=== PATIENT | female | born 1950 | race Caucasian/White ===

== ENCOUNTER → 2016-06-14 | Outpatient (CLI) | payer MEDICARE ==
[2016-06-14 10:55] LABS: ALT 43 U/L (9-52); AST 33 U/L (14-36)
== END | disposition home or self-care (01) ==
LOC: LABWHC1 09:47
PROVIDERS: ATTEND Physician Assistant Medical
DX: L40.0 Psoriasis vulgaris (principal)
CPT/HCPCS: 36415; 84450; 84460

== ENCOUNTER → 2017-09-11 | Outpatient (CLI) | payer MEDICARE ==
[2017-09-11 09:27] LABS: Basophils # (A) 0.1 k/uL (0-0.2); Basophils % (A) 1 %; Eosinophils # (A) 0.3 k/uL (0-0.7); Eosinophils % (A) 5 %; HCT 41.7 % (34.0-46.0); HGB 14.2 gm/dL (11.4-16.0); Lymphocytes # (A) 2.3 k/uL (1.0-4.8); Lymphocytes % (A) 40 %; MCH 29.8 pg (25.0-35.0); MCV 87.7 fL (80.0-100.0); Mean Platelet Volume 7.3; Monocytes # (A) 0.5 k/uL (0-1.0); Monocytes % (A) 8 %; Neutrophils # (A) 2.5 k/uL (1.3-7.7); Neutrophils % (A) 44 %; Platelet Count 197 k/uL (150-450); RBC 4.76 m/uL (3.80-5.40); RDW 13.4 % (11.5-15.5); WBC 5.6 k/uL (3.8-10.6)
[2017-09-11 09:49] LABS: T4, Free (Free Thyroxine) 0.87 ng/dL (0.78-2.19)
[2017-09-11 11:03] LABS: ALT 38 U/L (9-52); AST 33 U/L (14-36); Albumin 4.5 g/dL (3.5-5.0); Alkaline Phosphatase 67 U/L (38-126); Anion Gap 15 mmol/L; Blood Urea Nitrogen 16 mg/dL (7-17); Calcium 9.7 mg/dL (8.4-10.2); Carbon Dioxide 24 mmol/L (22-30); Chloride 107 mmol/L (98-107); Cholesterol 184 mg/dL (<200); Glucose 96 mg/dL (74-99); HDL Cholesterol 39 mg/dL (40-60); LDL Cholesterol,Calculated 97 mg/dL (0-99); Sodium 146 mmol/L (137-145); Total Bilirubin 0.5 mg/dL (0.2-1.3); Total Protein 6.9 g/dL (6.3-8.2); Triglycerides 242 mg/dL (<150)
[2017-09-11 17:58] LABS: Hemoglobin A1C 5.5 % (4.0-6.0)
== END | disposition home or self-care (01) ==
LOC: LABWHC1 08:16
PROVIDERS: ATTEND Internal Medicine Geriatric Medicine
DX: E03.9 Hypothyroidism, unspecified (principal); R79.9 Abnormal finding of blood chemistry, unspecified; I10 Essential (primary) hypertension; E78.00 Pure hypercholesterolemia, unspecified
CPT/HCPCS: 36415; 80053; 80061; 83036; 84439; 84443; 85025

== ENCOUNTER → 2017-11-27 | Outpatient (CLI) | payer MEDICARE ==
--- NOTE | 2017-11-27 17:24 | BD ---
EXAMINATION TYPE: Axial Bone Density DATE OF EXAM: 11/27/2017 COMPARISON: 10.19.2014 CLINICAL HISTORY: 66 YR OLD FEMALE.....ICD-10 CODE: M81.0 KNOWN OSTEOPOROSIS Height: 61 Weight: 173 FRAX RISK QUESTIONS: Family History (Parent hip fracture): NO FX RISK FACTORS HISTORY OF: HX OF STRESS FX TO FOOT/49 YRS OLD Family History of Osteoporosis: YES HER MOTHER, NO HIP FXS Active: NOT REALLY Diet low in dairy products/other sources of calcium: NO Postmenopausal woman: YES, AT ABOUT 53 YRS OLD MEDICATIONS: Thyroid Medications: YES, SYNTHROID FOR ABOUT 20 YRS Additional Medications: BP MEDS, PROZAC, VIT D, METHOTREXATE Additional History: HEART TROUBLE, ANXIETY, PSORIASIS WITH RELATED ARTHRITIS EXAM MEASUREMENTS: Bone mineral densitometry was performed using the [employer] System. Bone mineral density as measured about the Lumbar spine is: ----- L1-L4(G/cm2): 1.436 T Score Values are as follows: ----- L1: 1.6 ----- L2: 2.4 ----- L3: 1.5 ----- L4: 2.9 ----- L1-L4: 2.1 Bone mineral density has: Increased 13.8% since study of: 10.19.2014 Bone mineral density about the R hip (g/cm2): 0.988 Bone mineral density about the L hip (g/cm2): 1.033 T Score values are as follows: -----R Neck: -1.6 -----L Neck: -1.4 -----R Total: -0.2 -----L Total: 0.2 Bone mineral density has: Increased 0.7% since study of: 10.19.2014 FRAX%s: THERE IS A 23.4% CHANCE OF A MAJOR OSTEOPOROTIC FX AND A 3.7% FOR HIP FX.....PROBABILITY O F FX IN 10 YRS TIME IMPRESSION: Osteopenia (T Score between -2.5 and -1). There is slightly increased risk of fracture and the patient may be considered for treatment. Re-Screen 2-5 years. NOTE: T-SCORE=SD OF THE YOUNG ADULT MEAN.
--- NOTE | 2017-11-28 12:47 | MM ---
Reason for exam: screening (asymptomatic). Last mammogram was performed 3 years and 2 months ago. History: Patient is postmenopausal. Family history of breast cancer in paternal cousin at age 45 and breast cancer in paternal cousin at age 40. Took estrogen for 1 year. Physical Findings: A clinical breast exam by your physician is recommended on an annual basis and results should be correlated with mammographic findings. MG 3D Screening Mammo W/Cad Bilateral CC and MLO view(s) were taken. Prior study comparison: October 06, 2014, bilateral MG screening mammo w CAD. July 30, 2013, bilateral digital screening mammo w/CAD. The breast tissue is heterogeneously dense. This may lower the sensitivity of mammography. There is no discrete abnormality. No significant changes when compared with prior studies. ASSESSMENT: Negative, BI-RAD 1 RECOMMENDATION: Routine screening mammogram of both breasts in 1 year.
== END | disposition home or self-care (01) ==
LOC: RADMAMWWP 13:47
PROVIDERS: ATTEND Internal Medicine Geriatric Medicine
DX: Z12.31 Encounter for screening mammogram for malignant neoplasm of breast (principal); M81.0 Age-related osteoporosis without current pathological fracture; M85.80 Other specified disorders of bone density and structure, unspecified site
CPT/HCPCS: 77063; 77067; 77080

== ENCOUNTER 2018-04-27 12:55 | Emergency (ER) | payer MEDICARE ==
--- NOTE | 2018-04-27 22:27 | CT ---
EXAMINATION TYPE: TEMPORARY DATE OF EXAM: 04/27/2018 COMPARISON: None HISTORY: 67 year-old female left lower quadrant pain TECHNIQUE: Contiguous axial scanning of the abdomen and pelvis after the administration of 100 mL of Isovue 300. Delayed images through the kidneys. Coronal/sagittal reconstructions performed. Patient premedicated due to iodinated contrast allergy. CT DLP: 873mGycm. Automatic exposure control utilized for a dose reduction. FINDINGS: Heart normal size without pericardial effusion. Moderate-sized hiatal hernia is present. Some strandy atelectasis in the lower lungs. No pleural effusion. Diminished attenuation of the liver suggesting fatty infiltration. No focal liver lesion seen. Portal venous system is patent. No biliary ductal dilatation. Gallbladder, adrenal glands, kidneys, spleen, hilar splenule, and pancreas appear within normal limit s. Retroaortic left renal vein. No dilated small bowel, free fluid, or free air. Moderate stool in the cecum and ascending colon. The remainder of the colon is relatively collapsed. There is moderate inflammation within the pelvis that appears to be centered on a thick-walled cystic structure located in the median, left paramedian cul-de-sac measuring 7.3 cm. Some focal soft tissue nodularity along the anterior margin measuring 2.6 cm, axial image 60. Small amount of adjacent cul- de-sac free fluid. Possible internal septation. Uterus is visualized. Small right ovary is visualized. Multiple pelvic platelets. Mild degenerative changes at the hips. Moderate to advanced degenerative c hanges throughout the lumbar spine. IMPRESSION: 1. Inflamed cystic lesion in the left paramedian cul-de-sac measuring 7.3 cm may have a thin internal septation. There is some focal soft tissue nodularity along the anterior margin measuring 2.6 cm. Ex act etiology is uncertain. Given the inflammatory changes, a hemorrhagic cyst, tubo-ovarian abscess, or dilated and inflamed fallopian tube are all in the differential. Inflammatory changes are unusual for cystic epithelial ovarian neoplasm. Consider pelvic ultrasound for further evaluation. 2. Small amount of adjacent cul-de-sac free fluid.
[2018-04-28 02:12] LABS: Partial Thromboplastin Time 24.4 sec (22.0-30.0); Prothrombin Time 10.5 sec (9.0-12.0)
[2018-04-28 02:23] LABS: Basophils # (A) 0.1 k/uL (0-0.2); Basophils % (A) 1 %; Eosinophils # (A) 0.1 k/uL (0-0.7); Eosinophils % (A) 1 %; HCT 39.9 % (34.0-46.0); HGB 13.3 gm/dL (11.4-16.0); Lymphocytes # (A) 1.8 k/uL (1.0-4.8); Lymphocytes % (A) 16 %; MCH 29.4 pg (25.0-35.0); MCHC 33.2 g/dL (31.0-37.0); MCV 88.7 fL (80.0-100.0); Mean Platelet Volume 6.6; Monocytes # (A) 0.9 k/uL (0-1.0); Monocytes % (A) 8 %; Neutrophils % (A) 72 %; Platelet Count 212 k/uL (150-450); RDW 13.9 % (11.5-15.5); WBC 11.1 k/uL (3.8-10.6)
[2018-04-28 03:19] LABS: ALT 25 U/L (9-52); AST 29 U/L (14-36); Albumin 4.2 g/dL (3.5-5.0); Alkaline Phosphatase 46 U/L (38-126); Anion Gap 7 mmol/L; Blood Urea Nitrogen 19 mg/dL (7-17); Calcium 9.5 mg/dL (8.4-10.2); Carbon Dioxide 27 mmol/L (22-30); Chloride 105 mmol/L (98-107); Glucose 109 mg/dL (74-99); Potassium 4.7 mmol/L (3.5-5.1); Sodium 139 mmol/L (137-145); Total Bilirubin 1.1 mg/dL (0.2-1.3); Total Protein 7.1 g/dL (6.3-8.2)
[2018-04-28 04:02] LABS: Appearance,Urine Clear (Clear); Bacteria,Urine Rare /hpf; Bilirubin,Urine Negative (Negative); Blood,Urine Trace (Negative); Color,Urine Yellow; Glucose,Urine (UA) Negative (Negative); Ketones,Urine Negative (Negative); Leukocyte Esterase,Urine Negative (Negative); Mucus,Urine Few /hpf; Nitrite,Urine Negative (Negative); PH, Urine 5.5 (5.0-8.0); Protein,Urine Trace (Negative); RBC,Urine 1 /hpf (0-5); Specific Gravity,Urine 1.026 (1.001-1.035); WBC,Urine 2 /hpf (0-5)
--- NOTE | 2018-04-28 10:00 | US ---
EXAMINATION TYPE: Ultrasound pelvis transabdominal plus Dopplers DATE OF EXAM: 04/27/2018 COMPARISON: Correlation CT same day HISTORY: 67-year-old female left lower quadrant pain and bloating TECHNIQUE: Multiple transabdominal sonographic images of the pelvis are obtained. Color Doppler and s pectral waveform analysis of the ovarian arteries and veins. Patient declined transvaginal exam at this time FINDINGS: EXAM MEASUREMENTS: Uterus: 7.2 x 3.1 x 4.9 cm Endometrial Stripe: 0.5 cm Right Ovary: 2.2 x 1.4 x 1.8 cm Left Ovary: 7.2 x 6.3 x 8.0 cm TECH IMPRESSIONS: 1. Uterus: anteverted, wnl 2. Endometrium: wnl 3. Right Ovary: wnl 4. Left Ovary: Slightly thick walled cystic mass with multiple septations. Mass measures 5.6 x 5.2 x 6.6 cm. No internal vascularity. 5. Bilateral Adnexa: wnl 6. Posterior cul-de-sac: wnl Good blood flow visualized within ovaries, no evidence of ovarian torsion IMPRESSION: 1. Slightly thick walled 6.6 cm complex cystic mass of the left ovary with internal septations. Furth er clinical correlation recommended as to etiology. Ultrasound appearance suggests a complex cystic m ass of the left ovary. Cystic epithelial ovarian neoplasm would be in the differential. Recommend jackie gical consultation. If the clinical scenario is more in line with tubo-ovarian abscess, follow-up aft er treatment. 2. No sonographic evidence for ovarian torsion.
== END 2018-04-27 23:55 | disposition home or self-care (01) ==
LOC: EC 12:55
DX: N83.8 Other noninflammatory disorders of ovary, fallopian tube and broad ligament (principal); R10.32 Left lower quadrant pain; E03.9 Hypothyroidism, unspecified; L40.9 Psoriasis, unspecified; Z87.891 Personal history of nicotine dependence; Z79.890 Hormone replacement therapy; Z79.899 Other long term (current) drug therapy; Z88.1 Allergy status to other antibiotic agents; Z91.013 Allergy to seafood; Z88.8 Allergy status to other drugs, medicaments and biological substances
CPT/HCPCS: 36415; 80053; 85025; 85610; 85730; 81001; 87086; 93975; 76830; 74177; 99284; 96365; 96375 ×4; 96361; Q9967

== ENCOUNTER → 2018-05-15 | Outpatient (CLI) | payer MEDICARE ==
[2018-05-15 11:56] VITALS: BP 161/70; PULSE 72; RESP 18; TEMP 97.2; BMI 31.9
--- NOTE | 2018-05-15 13:53 | P.HPOB ---
History of Present Illness H&P Date: 05/15/18 Chief Complaint: The patient is here for her routine gynecologic exam. This is a 67-year-old G3 PIII with an LMP of 1999. The patient states she felt a sharp left pelvic pain on 04/22/2018 when she bent over to parts picker her grand child. The pain went away right away, but felt sore the next day. This discomfort lasted for one week. She went to the emergency center for evaluation. A CT scan of the abdomen and pelvis revealed a 7.3 cm pelvic mass. Pelvic ultrasound was also done on that day which showed a 6.6 cm complex pelvic mass with thickened sidewalls. The mass was cystic with an internal septation. The patient was referred to Dr. Beverly Baker, a gynecologic oncologist at [facility]. The patient is scheduled for surgery on 06/12/2018. The surgery will be done at [facility]. The patient wanted to further discuss the findings and the plan. She states she did not have a Pap smear test done when she saw Dr. Baker. She denies abdominal or pelvic pain at this time. She also denies abdominal bloating. Review of Systems The patient's weight has been stable over the last year. She denies respiratory , cardiac, or G.I. problems. Past Medical History Past Medical History: Thyroid Disorder (Hypothyroid) Additional Past Medical History / Comment(s): Psoriasis. PAST TECHNICAL WRITING LEAD/MGR HISTORY: She has no history of STDs. History of Any Multi-Drug Resistant Organisms: None Reported Past Surgical History: Tubal Ligation Additional Past Surgical History / Comment(s): Colonoscopy 2009. 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 - Past Family History Father Family Medical History: Diabetes Mellitus Additional Family Medical History / Comment(s): Paternal cousin had breast cancer. No family history of cancer of the uterus, ovaries or colon. Mother Family Medical History: Myocardial Infarction ([place]) Medications and Allergies Home Medications Medication Instructions Recorded Confirmed Type Levothyroxine Sodium [Synthroid] 50 mcg PO DAILY 05/15/18 05/15/18 History Methotrexate/Pf [Rasuvo 7.5 7.5 mg SQ 05/15/18 History mg/0.15 ml Autoinj] Metoprolol Succinate (ER) [Toprol 25 mg PO DAILY 05/15/18 05/15/18 History Xl] Allergies Allergy/AdvReac Type Severity Reaction Status Date / Time azithromycin [From Zithromax] AdvReac Severe Anaphylaxis Unverified 05/15/18 11: 43 iodine AdvReac Severe Rash/Hives Unverified 05/15/18 11:44 terbinafine [From Lamisil] AdvReac Severe Rash/Hives Unverified 05/15/18 11:44 Exam Vital Signs Temp Pulse Resp BP Pulse Ox 05/15/18 11:48 97.2 F L 72 18 161/70 100 Intake and Output 05/14/18 05/15/18 05/15/18 22:59 06:59 14:59 Other: Weight 76.657 kg Height 5'1", weight 169 pounds, BMI 31.9. This is a well-developed well-nourished white female who is alert and oriented times 3 in no acute distress. HEENT: Within normal limits. NECK: Supple without mass or thyromegaly. CHEST AND LUNGS: Clear to auscultation. HEART: Regular rate and rhythm. BREASTS: Are without mass or discharge. AXILLARY EXAM: Negative for adenopathy. BACK: Negative for CVA tenderness. ABDOMEN: Soft, nontender, without palpable masses. PELVIC EXAM: Normal external genitalia with mild atrophy. Cervix and vagina appear normal with mild atrophy. The cervix is slightly stenotic secondary to atrophy. There is no unusual discharge. There is no evidence of prolapse. The uterus is midposition, nongravid size and nontender. There is a mass palpable in the cul-de-sac that is firm and somewhat tender measuring approximately 5 to 6 cm. There are no other palpable adnexal masses. RECTAL EXAM: rectovaginal exam is negative for mass or tenderness and is negative for occult blood. EXTREMITIES: Nontender. Additional studies: CA 125 was within normal limits IMPRESSION: 1. 67-year-old menopausal female with complex cystic pelvic mass measuring approximately [address] scan and ultrasound. This most likely represents an ovarian mass and differential diagnosis will include malignancy, nonmalignant ovarian neoplasm, and fallopian tube mass such as complex hydrosalpinx. PLAN: 1. Pap smear was performed since it has been about 3 years since her last one. 2. Self breast awareness was discussed. 3. Mammogram was previously done on 11/27/2017 and was benign. She will repeat this in one year. 4. We have had a long discussion regarding her pelvic mass. We have discussed various possibilities in the differential diagnosis. We've also discussed why surgery will be needed to determine the nature of this mass. She is scheduled for a laparoscopic surgery to remove the mass. We have also discussed why it would be beneficial to remove both ovaries and fallopian tubes. She is also planning to have a hysterectomy at that time. We've also discussed the possible need for surgical staging and debulking if this is found to be a malignancy. We have discussed how ovarian cancers are categorized including the difference between staging and grading of a malignancy. All of her questions regarding her situation were answered. 5. She will follow-up with Dr. Baker for her surgery and postoperative care. 6. She will return in one year and PRN. Total time spent with the patient 60 minutes. The majority of time was spent counseling the patient and answering questions.
== END ==
LOC: WWCWWP 11:11
PROVIDERS: ATTEND Obstetrics & Gynecology
DX: Z53.9 Procedure and treatment not carried out, unspecified reason (principal)

== ENCOUNTER → 2018-08-30 | Outpatient (CLI) | payer MEDICARE ==
[2018-08-30 14:56] LABS: Basophils # (A) 0.1 k/uL (0-0.2); Basophils % (A) 1 %; Eosinophils # (A) 0.2 k/uL (0-0.7); Eosinophils % (A) 3 %; HCT 42.1 % (34.0-46.0); HGB 13.8 gm/dL (11.4-16.0); Lymphocytes # (A) 2.9 k/uL (1.0-4.8); Lymphocytes % (A) 43 %; MCH 27.4 pg (25.0-35.0); MCHC 32.8 g/dL (31.0-37.0); MCV 83.6 fL (80.0-100.0); Mean Platelet Volume 7.7; Monocytes # (A) 0.4 k/uL (0-1.0); Monocytes % (A) 6 %; Neutrophils # (A) 3.1 k/uL (1.3-7.7); Neutrophils % (A) 45 %; Platelet Count 237 k/uL (150-450); RBC 5.04 m/uL (3.80-5.40); RDW 15.3 % (11.5-15.5); WBC 6.9 k/uL (3.8-10.6)
[2018-08-30 18:59] LABS: ALT 30 U/L (8-44); AST 34 U/L (13-35)
== END | disposition home or self-care (01) ==
LOC: LABWHC1 13:03
PROVIDERS: ATTEND Dermatology
DX: L40.0 Psoriasis vulgaris (principal)
CPT/HCPCS: 36415; 84450; 84460; 85025

== ENCOUNTER → 2018-11-13 | Outpatient (CLI) | payer MEDICARE ==
[2018-11-13 14:55] LABS: Basophils # (A) 0.1 k/uL (0-0.2); Basophils % (A) 1 %; Eosinophils # (A) 0.2 k/uL (0-0.7); Eosinophils % (A) 3 %; HGB 14.9 gm/dL (11.4-16.0); Lymphocytes # (A) 2.9 k/uL (1.0-4.8); Lymphocytes % (A) 41 %; MCV 87.8 fL (80.0-100.0); Mean Platelet Volume 7.7; Monocytes # (A) 0.4 k/uL (0-1.0); Monocytes % (A) 6 %; Neutrophils # (A) 3.4 k/uL (1.3-7.7); Neutrophils % (A) 48 %; Platelet Count 232 k/uL (150-450); RBC 5.12 m/uL (3.80-5.40); RDW 14.8 % (11.5-15.5); WBC 7.1 k/uL (3.8-10.6)
[2018-11-13 18:20] LABS: ALT 32 U/L (8-44); AST 32 U/L (13-35)
== END | disposition home or self-care (01) ==
LOC: LABWHC1 12:56
PROVIDERS: ATTEND Dermatology
DX: L40.0 Psoriasis vulgaris (principal)
CPT/HCPCS: 36415; 84450; 84460; 85025

== ENCOUNTER → 2019-06-05 | Outpatient (CLI) | payer MEDICARE ==
[2019-06-05 11:52] LABS: Basophils # (A) 0.1 k/uL (0-0.2); Basophils % (A) 1 %; Eosinophils # (A) 0.2 k/uL (0-0.7); Eosinophils % (A) 3 %; HCT 43.1 % (34.0-46.0); Lymphocytes # (A) 2.2 k/uL (1.0-4.8); Lymphocytes % (A) 32 %; MCH 28.8 pg (25.0-35.0); MCHC 32.5 g/dL (31.0-37.0); MCV 88.5 fL (80.0-100.0); Monocytes # (A) 0.4 k/uL (0-1.0); Monocytes % (A) 6 %; Neutrophils # (A) 3.7 k/uL (1.3-7.7); Neutrophils % (A) 55 %; Platelet Count 255 k/uL (150-450); RBC 4.87 m/uL (3.80-5.40); WBC 6.8 k/uL (3.8-10.6)
[2019-06-05 17:12] LABS: Hemoglobin A1C 5.7 % (4.0-6.0)
[2019-06-05 17:41] LABS: African American GFR (CKD) 75.1 (60.0-200.0); Albumin 4.6 g/dL (3.80-4.90); Albumin/Globulin Ratio 2.19 (1.60-3.17); Anion Gap 12.2 mmol/L (4.00-12.00); Calcium 10.1 mg/dL (8.7-10.3); Carbon Dioxide 26.8 mmol/L (21.6-31.8); Chol/HDL Ratio 4.37; Globulin 2.1 g/dL (1.6-3.3); LDL Cholesterol,Calculated 98.6 mg/dL (0.0-131.0); Non-African American GFR(CKD) 64.8 (60.0-200.0); Total Bilirubin 0.6 mg/dL (0.2-1.2); Total Protein 6.7 g/dL (6.2-8.2); VLDL Calculation 39.4 mg/dL (5.00-40.00)
== END | disposition home or self-care (01) ==
LOC: LABWHC1 09:50
PROVIDERS: ATTEND Dermatology
DX: L40.0 Psoriasis vulgaris (principal); E03.9 Hypothyroidism, unspecified; E78.00 Pure hypercholesterolemia, unspecified; R79.9 Abnormal finding of blood chemistry, unspecified; E55.9 Vitamin D deficiency, unspecified
CPT/HCPCS: 36415; 80053; 80061; 82306; 83036; 84443; 85025

== ENCOUNTER → 2020-06-01 | Outpatient (CLI) | payer MEDICARE ==
--- NOTE | 2020-06-01 17:53 | BD ---
EXAMINATION TYPE: Axial Bone Density DATE OF EXAM: 06/01/2020 COMPARISON: NONE CLINICAL HISTORY: Height: 5 FT 1 IN Weight: 171 FRAX RISK QUESTIONS: Alcohol (3 or more units per day): NO Family History (Parent hip fracture): NO Glucocorticoids (More than 3mos): NO (Ex: prednisone, prednisolone, methylprednisolone, dexamethasone, and hydrocortisone). History of Fracture in Adulthood: YES Secondary Osteoporosis: 1. Type 1 Diabetes: NO 2. Hyperthyroidism: NO 3. Menopause before 45: NO 4. Malnutrition: NO 5. Chronic liver disease: NO Rheumatoid Arthritis: NO Current Tobacco Use: NO RISK FACTORS HISTORY OF: Family History of Osteoporosis: YES Active: FAIR Diet low in dairy products/other sources of calcium: NO Postmenopausal woman: APPROX AGE 53 Take estrogen and/or progesterone medications: NO Lost more than 2 inches in height since high school: YES MEDICATIONS: Thyroid Medications: YES Which medication: LEVOTHYROXINE How Long: OVER 20 YEARS Additional Medications: LEVOTHYROXINE, METHOTREXATE, PROZAC, METOPROLOL, VIT D, FOLIC ACID Additional History: EXAM MEASUREMENTS: Bone mineral densitometry was performed using the [employer] System. Bone mineral density as measured about the Lumbar spine is: ----- L1-L4(G/cm2): 1.413 T Score Values are as follows: ----- L2: 1.8 ----- L3: 1.8 ----- L4: 2.7 ----- L1-L4: 1.9 Bone mineral density has: DECREASED -0.9 % since study of: 2017 Bone mineral density about the R hip (g/cm2): 0.803 Bone mineral density about the L hip (g/cm2): 0.812 T Score values are as follows: -----R Neck: -1.7 -----L Neck: -1.6 -----R Total: -0.7 -----L Total: 0.1 Bone mineral density has: DECREASED -3.7 % since study of: 2018 IMPRESSION: Osteopenia (T Score between -2.5 and -1). There is slightly increased risk of fracture and the patient may be considered for treatment. Re-Screen 2-5 years. NOTE: T-SCORE=SD OF THE YOUNG ADULT MEAN.
--- NOTE | 2020-06-03 11:58 | MM ---
Reason for exam: screening (asymptomatic). Last mammogram was performed 2 years and 6 months ago. History: Patient is postmenopausal and history of other cancer. Family history of breast cancer in paternal cousin at age 45, breast cancer in paternal cousin at age 40, and breast cancer in sister at age 69. Took hormonal contraceptives for 10 years. Took estrogen for 1 year. Physical Findings: A clinical breast exam by your physician is recommended on an annual basis and results should be correlated with mammographic findings. MG 3D Screening Mammo W/Cad Bilateral CC and MLO view(s) were taken. Prior study comparison: November 27, 2017, bilateral MG 3d screening mammo w/cad. October 06, 2014, bilateral MG screening mammo w CAD. There are scattered fibroglandular densities. No significant changes when compared with prior studies. ASSESSMENT: Benign, BI-RAD 2 RECOMMENDATION: Routine screening mammogram of both breasts in 1 year.
== END ==
LOC: RADBDWWP 09:05
PROVIDERS: ATTEND Internal Medicine Geriatric Medicine
DX: Z12.31 Encounter for screening mammogram for malignant neoplasm of breast (principal); Z78.0 Asymptomatic menopausal state; Z80.3 Family history of malignant neoplasm of breast
CPT/HCPCS: 77063; 77067; 77080

== ENCOUNTER → 2020-08-25 | Outpatient (CLI) | payer MEDICARE ==
[2020-08-25 19:22] LABS: Basophils # (A) 0.05 X 10*3/uL (0.00-0.10); Basophils % (A) 0.9 %; Eosinophils # (A) 0.17 X 10*3/uL (0.04-0.35); Eosinophils % (A) 2.9 %; HGB 13.4 g/dL (12.0-15.0); Lymphocytes # (A) 2.13 X 10*3/uL (0.90-5.00); Lymphocytes % (A) 36.5 %; MCH 28.9 pg (27.0-32.0); MCHC 31.9 g/dL (32.0-37.0); MCV 90.5 fL (80.0-97.0); Mean Platelet Volume 11.1 fL (9.5-12.2); Monocytes % (A) 8.6 %; Neutrophils # (A) 2.94 X 10*3/uL (1.80-7.70); Neutrophils % (A) 50.4 %; Platelet Count 220 X 10*3/uL (140-440); RBC 4.64 X 10*6/uL (4.10-5.20); RDW 13.3 % (11.5-14.5); WBC 5.83 X 10*3/uL (4.50-10.00)
[2020-08-26 00:31] LABS: African American GFR (CKD) 74.6 (60.0-200.0); Non-African American GFR(CKD) 64.3 (60.0-200.0)
== END | disposition home or self-care (01) ==
LOC: LABWHC1 11:43
PROVIDERS: ATTEND Dermatology
DX: L40.0 Psoriasis vulgaris (principal)
CPT/HCPCS: 36415; 82565; 84450; 84460; 84520; 85025

== ENCOUNTER → 2022-11-03 | Outpatient (CLI) | payer MEDICARE ==
--- NOTE | 2022-11-03 14:56 | BD ---
EXAMINATION TYPE: Axial Bone Density DATE OF EXAM: 11/03/2022 CLINICAL HISTORY: 71 years old Female. ICD-10 CODE: M810 AGE RELATED OSTEO Height: 61 Weight: 157.8 FRAX RISK QUESTIONS: Alcohol (3 or more units per day): no Family History (Parent hip fracture): no Glucocorticoids (More than 3mos): no (Ex: prednisone, prednisolone, methylprednisolone, dexamethasone, and hydrocortisone). History of Fracture in Adulthood: no Secondary Osteoporosis: 1. Type 1 Diabetes: no 2. Hyperthyroidism: no 3. Menopause before 45: no 4. Malnutrition: no 5. Chronic liver disease: no Rheumatoid Arthritis: no Current Tobacco Use: no RISK FACTORS HISTORY OF: Surgery to Spine/Hip(right/left)/Wrist (right/left): no Family History of Osteoporosis: yes Active: no Diet low in dairy products/other sources of calcium: no Postmenopausal woman: yes Lost more than 2 inches in height since high school: no MEDICATIONS: Thyroid Medications: levothyroxine How Lon years Additional History: EXAM MEASUREMENTS: Bone mineral densitometry was performed using the [employer] System. Bone mineral density as measured about the Lumbar spine is: ----- L1-L4(G/cm2): 1.395 T Score Values are as follows: ----- L1: 1.1 ----- L2: 1.3 ----- L3: 2.1 ----- L4: 2.4 ----- L1-L4: 1.8 Z Score Values are as follows: ----- L1: 2.6 ----- L2: 2.8 ----- L3: 3.6 ----- L4: 3.9 ----- L1-L4: 3.3 Bone mineral density has: decreased -1.3 % since study of 06.01.2020 Bone mineral density about the R hip (g/cm2): 0.928 Bone mineral density about the L hip (g/cm2): 0.984 T Score values are as follows: -----R Neck: -1.9 -----L Neck: -1.5 -----R Total: -0.6 -----L Total: -0.2 Z Score values are as follows: -----R Neck: -0.2 -----L Neck: 0.2 -----R Total: 0.9 -----L Total: 1.3 Bone mineral density has: decreased -1.8 % since study of: 3.2.2020 FRAX%s: The graph provided illustrates a 12.1 % chance for a major osteoporotic fx and a 2.7% chance for the hips probability for fx in 10 years time. IMPRESSION: Osteopenia (T Score between -2.5 and -1). There is slightly increased risk of fracture and the patient may be considered for treatment. Re-Screen 2-5 years. NOTE: T-SCORE=SD OF THE YOUNG ADULT MEAN.
--- NOTE | 2022-11-06 15:38 | MM ---
Reason for Exam: Screening (asymptomatic). Last mammogram was performed 2 year(s) and 5 month(s) ago. Patient History: Menarche at age 9. First Full-Term at age 27. Left ovary removed at age 67. Right ovary removed at age 67. Hysterectomy at age 67. Postmenopausal. Other cancer. Estrogen for 1 year until age 50. Patient used Hormonal Contraceptives for 10 years. Paternal cousin had breast cancer, age 45. Paternal cousin had breast cancer, age 40. Sister had breast cancer, age 69. Risk Values: Sydnee 5 year model risk: 3.8%. NCI Lifetime model risk: 9.2%. Prior Study Comparison: 10/06/2014 Bilateral Screening Mammogram, [facility]. 11/27/2017 Bilateral Screening Mammogram, [facility]. 06/01/2020 Bilateral Screening Mammogram, [facility]. Tissue Density: The breast tissue is heterogeneously dense. This may lower the sensitivity of mammography. Findings: Analyzed By CAD. Pattern appears symmetrical and stable. No significant interval change is evident. There is some chronic nodularity in the upper outer quadrants. No significant interval change is evident benign vascular calcifications within the bilateral breasts. No suspicious groups of microcalcifications, spiculated or lobular masses, architectural distortion or other secondary signs of malignancy are mammographically apparent. Overall Assessment: Benign, BI-RAD 2 Management: Screening Mammogram of both breasts in 1 year. A negative mammogram report should not preclude additional follow up of suspicious palpable abnormalities. Patient should continue monthly self breast exam. A clinical breast exam by your physician is recommended on an annual basis and results should be correlated with mammographic findings. Electronically signed and approved by: Angelito De Paz D.O. Radiologis
== END | disposition home or self-care (01) ==
LOC: RADMAMWWP 13:57
PROVIDERS: ATTEND Internal Medicine Geriatric Medicine
DX: Z12.31 Encounter for screening mammogram for malignant neoplasm of breast (principal); M81.0 Age-related osteoporosis without current pathological fracture; M85.88 Other specified disorders of bone density and structure, other site; E78.00 Pure hypercholesterolemia, unspecified; E03.9 Hypothyroidism, unspecified; E55.9 Vitamin D deficiency, unspecified; R79.9 Abnormal finding of blood chemistry, unspecified; Z78.0 Asymptomatic menopausal state; Z80.3 Family history of malignant neoplasm of breast
CPT/HCPCS: 77063; 77067; 77080

== ENCOUNTER → 2022-11-03 | Outpatient (CLI) | payer MEDICARE ==
[2022-11-03 21:04] LABS: Basophils # (A) 0.07 X 10*3/uL (0.00-0.10); Eosinophils # (A) 0.12 X 10*3/uL (0.04-0.35); Eosinophils % (A) 1.7 %; HCT 40.7 % (37.2-46.3); HGB 13.8 d/dL (12.0-15.0); Lymphocytes # (A) 2.36 X 10*3/uL (0.90-5.00); Lymphocytes % (A) 34.3 %; MCH 29.8 pg (27.0-32.0); MCHC 33.9 d/dL (32.0-37.0); MCV 87.9 FL (80.0-97.0); Mean Platelet Volume 10.8 FL (9.5-12.2); Monocytes # (A) 0.65 X 10*3/uL (0.20-1.00); Monocytes % (A) 9.4 %; NRBC Per 100 WBC 0 X 10*3/uL (0.00-0.01); Neutrophils # (A) 3.66 X 10*3/uL (1.80-7.70); Neutrophils % (A) 53.2 %; Platelet Count 203 X 10*3/uL (140-440); RBC 4.63 X 10*6/uL (4.10-5.20); RDW 13.2 % (11.5-14.5); WBC 6.89 X 10*3/uL (4.50-10.00)
[2022-11-03 21:22] LABS: Chol/HDL Ratio 5.04 Ratio; LDL Cholesterol,Calculated 71.1 mg/dL (0.0-131.0)
[2022-11-03 21:23] LABS: ALT 22 U/L (8-44); AST 26 U/L (13-35); Albumin 4.7 d/dL (3.8-4.9); Albumin/Globulin Ratio 2.14 Ratio (1.60-3.17); Alkaline Phosphatase 69 U/L (41-126); BUN/Creat Ratio 22.25 Ratio (12.00-20.00); Blood Urea Nitrogen 17.8 mg/dL (9.0-27.0); Calcium 10.3 mg/dL (8.7-10.3); Carbon Dioxide 27.8 mmol/L (21.6-31.8); Chloride 103 mmol/L (96-109); Globulin 2.2 d/dL (1.6-3.3); Glucose 88 mg/dL (70-110); Potassium 4.8 mmol/L (3.5-5.5); Sodium 140 mmol/L (135-145); T4, Free (Free Thyroxine) 1.22 ng/dL (0.80-1.80); Total Bilirubin 0.4 mg/dL (0.3-1.2); Total Protein 6.9 d/dL (6.2-8.2)
== END | disposition home or self-care (01) ==
LOC: LABWHC1 14:28
PROVIDERS: ATTEND Nurse Practitioner Family
DX: E78.00 Pure hypercholesterolemia, unspecified (principal); E03.9 Hypothyroidism, unspecified; E55.9 Vitamin D deficiency, unspecified; R79.9 Abnormal finding of blood chemistry, unspecified
CPT/HCPCS: 36415; 80053; 80061; 82306; 83036; 83721; 84439; 84443; 85025

== ENCOUNTER → 2024-02-13 | Outpatient (CLI) | payer MEDICARE ==
--- NOTE | 2024-02-16 17:01 | MM ---
Reason for Exam: Screening (asymptomatic). Last mammogram was performed 1 year(s) and 3 month(s) ago. Patient History: Menarche at age 9. First Full-Term at age 27. Left ovary removed at age 67. Right ovary removed at age 67. Hysterectomy at age 67. Postmenopausal. Other cancer. Estrogen for 1 year until age 50. Patient used Hormonal Contraceptives for 10 years. Paternal cousin had breast cancer, age 45. Paternal cousin had breast cancer, age 40. Sister had breast cancer, age 69. Risk Values: Sydnee 5 year model risk: 3.8%. NCI Lifetime model risk: 8.1%. Prior Study Comparison: 11/27/2017 Bilateral Screening Mammogram, [facility]. 06/01/2020 Bilateral Screening Mammogram, [facility]. 11/03/2022 Bilateral MG 3D screening mammo w/cad, [facility]. Tissue Density: There are scattered areas of fibroglandular density. Findings: Analyzed By CAD. The pattern is symmetrical. No significant interval change is evident. Benign vascular calcification is present bilaterally No suspicious groups of microcalcifications, spiculated or lobular masses, architectural distortion or other secondary signs of malignancy are mammographically apparent. Overall Assessment: Benign, BI-RAD 2 Management: Screening Mammogram of both breasts in 1 year. A negative mammogram report should not preclude additional follow up of suspicious palpable abnormalities. Patient should continue monthly self breast exam. A clinical breast exam by your physician is recommended on an annual basis and results should be correlated with mammographic findings. Note on Sydnee scores and lifetime risk: 1. A Sydnee score greater than 3% is considered moderate risk. If this is the case, consider specialist referral to assess eligibility for a risk reducing agent. 2. If overall lifetime risk for the development of breast cancer is 20% or higher, the patient may qualify for future screening with alternating mammogram and breast MRI. [facility], , 02/16/2024 4:59 PM. Electronically signed and approved by: Angelito De Paz D.O. Radiologis
== END | disposition home or self-care (01) ==
LOC: RADMAMWWP 12:19
PROVIDERS: ATTEND Internal Medicine Geriatric Medicine
DX: Z12.31 Encounter for screening mammogram for malignant neoplasm of breast (principal); R92.323 Mammographic fibroglandular density, bilateral breasts; Z78.0 Asymptomatic menopausal state; Z80.3 Family history of malignant neoplasm of breast
CPT/HCPCS: 77063; 77067

== ENCOUNTER → 2024-03-18 | Outpatient (CLI) | payer MEDICARE ==
[2024-03-18 19:36] LABS: ALT 43 U/L (8-44); AST 36 U/L (13-35)
[2024-03-18 19:52] LABS: Hepatitis B Surface Antigen Nonreactive (Nonreactive); Hepatitis C IgG Antibody Nonreactive (Nonreactive)
[2024-03-18 20:10] LABS: Basophils # (A) 0.06 X 10*3/uL (0.00-0.10); Eosinophils # (A) 0.14 X 10*3/uL (0.04-0.35); Eosinophils % (A) 2.4 %; Lymphocytes # (A) 1.84 X 10*3/uL (0.90-5.00); Lymphocytes % (A) 31.5 %; MCH 29.2 pg (27.0-32.0); MCHC 33.3 g/dL (32.0-37.0); MCV 87.6 FL (80.0-97.0); Mean Platelet Volume 10.8 FL (9.5-12.2); Monocytes # (A) 0.45 X 10*3/uL (0.20-1.00); Monocytes % (A) 7.7 %; NRBC Per 100 WBC 0 X 10*3/uL (0.00-0.01); Neutrophils # (A) 3.34 X 10*3/uL (1.80-7.70); Neutrophils % (A) 57.2 %; Platelet Count 198 X 10*3/uL (140-440); RBC 4.45 X 10*6/uL (4.10-5.20); RDW 13.4 % (11.5-14.5); WBC 5.84 X 10*3/uL (4.50-10.00)
[2024-03-18 20:23] LABS: Hepatitis B Surface AB- Quant 7.2 mIU/mL
== END | disposition home or self-care (01) ==
LOC: LABWHC1 15:23
PROVIDERS: ATTEND Dermatology
DX: L40.0 Psoriasis vulgaris (principal)
CPT/HCPCS: 36415; 82565; 84450; 84460; 85025; 86480; 86704; 86706; 86803; 87340